=== PATIENT | male | born 1980 | race Caucasian/White ===

== ENCOUNTER 2024-05-26 08:27 | Emergency (ER) | payer OTHER, SELFPAY ==
[2024-05-26 08:34] VITALS: BP 154/92; PULSE 77; RESP 18; TEMP 36.4; O2SAT 98
--- NOTE | 2024-05-26 08:35 | XR_ITS ---
WS: [id number] PORTABLE CHEST HISTORY: dyspnea/cough COMPARISON: None available. Lungs are clear and well expanded. No pleural effusion or pneumothorax. Cardiac size: Normal. Mediastinum/Aorta: Normal mediastinum. No osseous abnormality seen. XR/XR chest 1V portable [id number] IMPRESSION: Unremarkable portable chest.
--- NOTE | 2024-05-26 08:36 | ECG_ITS ---
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 Measurements Intervals [place] Rate: 69 P: 46 RI: 189 QRS: 5 QRSD: 80 T: 19 QT: 346 QTc: 372 Interpretive Statements SINUS RHYTHM LOW QRS VOLTAGE IN PRECORDIAL LEADS [QRS DEFLECTION < 1.0 mV IN CHEST LEADS] INTERPRETATION BASED ON A DEFAULT AGE OF 40 YEARS No previous ECG available for comparison Electronically Signed On 05-28-2024 00:02:09 LUSTER APPLICATOR by Sarah Sapp M.D. [id number]
--- NOTE | 2024-05-26 08:38 | ED_ITS ---
HPI - SOB/Dyspnea 2 General: Chief Complaint: Shortness of Breath/Dyspnea Stated Complaint: Numbness in hands&feet, Sob, rapid hr Time Seen by Provider: 05/26/24 08:30 History of Present Illness: HPI Narrative: 43-year-old male presents to the emergen cy room with complaints of shortness of breath rapid heart rate elevated blood pressure at times he feels like he is having palpitations. No productive cough no fever sweats or chills. Patient has no known history of coronary artery disease. He is currently on lisinopril he states whenever he takes lisinopril it makes him feel uneasy. He is not having any chest discomfort or shortness of breath now. Patient does not smoke is not a known diabetic. He is not having a productive cough. He denies any hemoptysis. Associated symptoms: Reports palpitations; Deny abdominal pain, chest pain, fever(s) or orthopnea Related Data Home Medications Medication Instructions Recorded Confirmed albuterol sulfate 2.5 mg/3 mL 2.5 mg continuous nebulization Q6H 05/26/24 05/26/24 (0.083 %) solution for nebulization aspirin 81 mg tablet,delayed 81 mg PO DAILY 05/26/24 05/26/24 release Previous Rx's Medication Instructions Recorded omeprazole 20 mg capsule,delayed 20 mg PO DAILY 90 days #90 caps 05/16/24 release fluticasone propionate 50 1 spray intranasal BID #16 grams 05/23/24 mcg/actuation nasal spray,suspension (Flonase Allergy Relief) montelukast 10 mg tablet 10 mg PO DAILY 30 days #30 tabs 05/23/24 (Singulair) losartan 50 mg tablet 50 mg PO DAILY #30 tabs 05/26/24 Allergies Allergy/AdvReac Type Severity Reaction Status Date / Time No Known Allergies Allergy Verified 05/23/24 11:21 Review of Systems 2 Const: Denies: fever(s) or chills Card: Reports: palpitations; Denies: chest pain, edema, swelling of feet/ankles, dyspnea on exertion or orthopnea Resp: Reports: dyspnea GI: Denies: abdominal pain : Denies: dysuria, urinary frequency or urinary urgency Musc: Denies: neck pain or back pain Skin/Breast: Denies: rash PFSH ED 2 PFSH: Medical History Essential hypertension Social History Smoking and tobacco/nicotine status: never used tobacco/nicotine Alcohol intake: current Substance/Drug Use: never Adopted: No Caregiver/support person: Yes Lives independently: No Household members: spouse and children Housing: House Physical Exam 2 Const: COMMON NORMALS: no acute distress GENERAL APPEARANCE: cooperative and comfortable ORIENTATION/CONSCIOUSNESS: Yes awake, Yes oriented to person, Yes oriented to place and Yes oriented to time HENMT: COMMON NORMALS: normocephalic, atraumatic and hearing grossly normal bilaterally HEAD & SCALP: normocephalic and atraumatic Resp: COMMON NORMALS: normal respiratory effort, No retractions, No use of accessory muscles and clear to auscultation bilaterally AUSCULTATION: clear to auscultation bilaterally Cardio: COMMON NORMALS: regular rate, regular rhythm and No murmurs present (Cardio) RATE: regular rate RHYTHM: regular rhythm GI: COMMON NORMALS: Soft to palpation and No hepatosplenomegaly present A USCULTATION: Yes normoactive bowel sounds PALPATION: Yes Soft to palpation, No Tenderness to palpation present (GI), No Guarding due to palpation present (GI) and Yes No hepatosplenomegaly present Extremity: COMMON NORMALS: normal to inspection, capillary refill normal, no clubbing, cyanosis or edema, no calf tenderness and no pedal edema Neuro: SENSORIUM/ORIENTATION: Yes oriented to person, Yes oriented to place and Yes oriented to time Skin: COMMON NORMALS: no rashes or lesions noted GENERAL SKIN EXAM: no rashes or lesions noted Course 2 Vital Signs: Vital signs: Vital Signs Temperature 97.5 F L 05/26/24 08:34 Pulse Rate 59 L 05/26/24 11:12 Respiratory Rate 14 05/26/24 10:01 Blood Pressure 134/77 05/26/24 11:12 Pulse Oximetry 97 05/26/24 11:12 Oxygen Delivery Me thod Room Air 05/26/24 10:01 MDM - SOB/Dyspnea Medical Decision Making Cardiac enzymes are negative patient's blood pressure is well-controlled he is concerned that lisinopril is causing side effects we will have him stop lisinopril switch him to losartan 50 mg daily set him up for an outpatient echocardiogram 72-hour Holter monitor and a stress test follow-up with primary care. Return to the emergency room if he has further problems. Medical Records I reviewed the patient's medical records. Lab Data I reviewed the patient's lab results. 05/26/24 08:43 05/26/24 08:43 Labs/Radiology: Radiology Impressions Chest X-Ray 05/26/24 08:35 IMPRESSION: Unremarkable portable chest. Laboratory Results WBC 11.22 10^3/uL (3.29-11.43) 05/26/24 08:43 RBC 5.77 10^6/uL (3.85-5.65) H 05/26/24 08:43 Hgb 16.40 g/dL (11.27-16.99) 05/26/24 08:43 Hct 50.8 % (37-53) 05/26/24 08:43 MCV 88.0 fl (82-101) 05/26/24 08:43 MCH 28.4 pg (27-33) 05/26/24 08:43 MCHC 32.3 g/dL (30-55) 05/26/24 08:43 RDW 13.2 % (12.1-15.1) 05/26/24 08:43 Plt Count 340 10^3/cmm (157-399) 05/26/24 08:43 MPV 9.7 fL (7.4-10.4) 05/26/24 08:43 Neut % (Auto) 69.8 % 05/26/24 08:43 Lymph % (Auto) 22.5 % 05/26/24 08:43 Sullivan % (Auto) 5.7 % 05/26/24 08:43 Eos % (Auto) 0.7 % 05/26/24 08:43 Baso % (Auto) 0.5 % 05/26/24 08:43 Neut # (Auto) 7.83 10^3/uL (1.8-7.7) H 05/26/24 08:43 Lymph # (Auto) 2.5 10^3/uL (0.8-4.8) 05/26/24 08:43 Sullivan # (Auto) 0.6 10^3/uL (0.2-0.9) 05/26/24 08:43 Eos # (Auto) 0.1 10^3/uL (0.0-0.8) 05/26/24 08:43 Baso # (Auto) 0.1 10^3/uL (0.0-0.1) 05/26/24 08:43 Nucleated RBC % (auto) 0 % 05/26/24 08:43 Nucleated RBCs # 0.0 /100WBC 05/26/24 08:43 D-Dimer 0.44 ug/mLFEU (0-0.59) 05/26/24 08:43 Specimen Type Arterial 05/26/24 08:46 Sample Site Radial, right 05/26/24 08:46 ABG pH 7.42 (7.35-7.45) 05/26/24 08:46 ABG pCO2 40.1 mmHg (35-45) 05/26/24 08:46 ABG pO2 77.5 mmHg (80.0-100.0) L 05/26/24 08:46 ABG PO2/FiO2 Ratio 369 05/26/24 08:46 ABG HCO3 25.9 mmol/L (22-26) 05/26/24 08:46 ABG O2 Saturation 96.6 05/26/24 08:46 ABG Base Excess 1.2 mmol/L (-2.0-2.0) 05/26/24 08:46 Hipolito Test Pos 05/26/24 08:46 A-a O2 Gradient 3.1 mmHg (5-10) L 05/26/24 08:46 Hematocrit 49.6 % (42-52) 05/26/24 08:46 Hgb O2 Saturation 94.7 % (95-100) L 05/26/24 08:46 Carboxyhemoglobin 0.8 %THgb (0.4-20.1) 05/26/24 08:46 Methemoglobin 1.1 % (0.4-1.5) 05/26/24 08:46 Total Hemoglobin 16.2 g/dL (14-18) 05/26/24 08:46 Sodium 139.0 mmol/L (131-143) 05/26/24 08:46 Potassium 4.1 mmol/L (3.5-5.0) 05/26/24 08:46 Glucose 164.0 mg/dL (70-115) H 05/26/24 08:46 Ionized Calcium 1.2 mmol/L (1.1-1.4) 05/26/24 08:46 O2 Delivery Device Room air 05/26/24 08:46 FiO2 21.0 % 05/26/24 08:46 Parts Assembler ID Amh 05/26/24 08:46 Sodium 138 mmol/L (136-145) 05/26/24 08:43 Potassium 4.1 mmol/L (3.5-5.1) 05/26/24 08:43 Chloride 99 mmol/L (98-107) 05/26/24 08:43 Carbon Dioxide 25 mmol/L (22-29) 05/26/24 08:43 Anion Gap 18.1 (5-19) 05/26/24 08:43 BUN 12 mg/dL (6-20) 05/26/24 08:43 Creatinine 0.8 mg/dL (0.7-1.2) 05/26/24 08:43 GFR Calculation 106.5 mL/min (90-130) 05/26/24 08:43 Glucose 151 mg/dL (65-115) H 05/26/24 08:43 Calculated Osmolality 289 mOsm/kg (285-295) 05/26/24 08:43 Calcium 9.4 mg/dL (8.5-10.5) 05/26/24 08:43 Total Bilirubin 0.6 mg/dL (0.15-1.2) 05/26/24 08:43 AST 17 U/L (0-40) 05/26/24 08:43 ALT 20 U/L (0-41) 05/26/24 08:43 Alkaline Phosphatase 113 U/L (40-130) 05/26/24 08:43 Troponin T Baseline 7 ng/L (0-15) 05/26/24 08:43 Troponin T 120 Minute 7.74 ng/L (0-15) 05/26/24 10:26 Delta Troponin T 0.74 ABS# (0-10) 05/26/24 10:26 Total Protein 7.4 g/dL (6.6-8.7) 05/26/24 08:43 Albumin 4.4 g/dL (3.5-5.2) 05/26/24 08:43 Globulin 3.0 g/dL (1.3-4.6) 05/26/24 08:43 TSH 1.14 uIU/mL (0.27-4.20) 05/26/24 08:43 Urine Color Yellow (Yellow) 05/26/24 08:58 Urine Appearance Clear (CLEAR) 05/26/24 08:58 Urine pH 6.0 (5-7) 05/26/24 08:58 Ur Specific [place] 1.021 (1.005-1.030) 05/26/24 08:58 Urine Protein Negative (Negative) 05/26/24 08:58 Urine Glucose (UA) Negative (Normal) 05/26/24 08:58 Urine Ketones Negative (Negative) 05/26/24 08:58 Urine Blood Negative (Negative) 05/26/24 08:58 Urine Nitrate Negative (Negative) 05/26/24 08:58 Urine Bilirubin Negative (Negative) 05/26/24 08:58 Urine Urobilinogen 1.0 mg/dL (Negative) 05/26/24 08:58 Ur Leukocyte Esterase Negative (Negative) 05/26/24 08:58 Urine RBC 0-2 /hpf (0-2) 05/26/24 08:58 Urine WBC 0-5 /hpf (0-5) 05/26/24 08:58 Ur Squamous Epith Cells 0-5 /hpf (0-5) 05/26/24 08:58 Amorphous Sediment Not Reportable 05/26/24 08:58 Urine Bacteria None seen /hpf (NONE) 05/26/24 08:58 Hyaline Casts 0-4 /lpf H 05/26/24 08:58 All radiology interpretation(s) finalized by discharge Discharge Plan Discharge Patient Disposition: Home Clinical Impression: Palpitations, Hypertension Condition: Stable Prescriptions: New losartan 50 mg tablet 50 mg PO DAILY Qty: 30 0RF Discontinued lisinopril 20 mg tablet 20 mg PO DAILY 30 Days Qty: 30 2RF Rx Instructions: Increase dosage to 20, cancel 10 30 day due to insurance No Action omeprazole 20 mg capsule,delayed release(DR/EC) 20 mg PO DAILY 90 Days Qty: 90 0RF montelukast [Singulair] 10 mg tablet 10 mg PO DAILY 30 Days Qty: 30 0RF fluticasone propionate [Flonase Allergy Relief] 50 mcg/actuation spray,suspension 1 spray intranasal BID Qty: 16 0RF Rx Instructions: administer into each nostril albuterol sulfate 2.5 mg /3 mL (0.083 %) solution for nebulization 2.5 mg continuous nebulization Q6H aspirin [Aspir-81] 81 mg Tablet,Delayed Release (Dr/Ec) 81 mg PO DAILY Discharge Orders: Discharge ED (Routine); Ordered 05/26/24 Ordered By: Ash Amaral Referrals: Artie Presley, PROCESSING SPEC [Primary Care Provider] - Discharge Diet: Usual diet Discharge Activity: Resume usual activity Patient Instructions: Opioid Safety, Pain Management Activity Restrictions/Additional Instructions: [facility] It is very important that you follow up as instructed or that you return to the Emergency Department should you have concerns or if your condition changes or worsens in any way. You were seen in the emergency room with complaints of palpitations and difficulty your blood pressure. Recommend that you stop lisinopril and said will have you take losartan 50 mg daily. Will set you up for an outpatient echocardiogram 72-hour Holter monitor and is graded exercise stress test. Follow-up with primary care doctor within a week to review your blood pressure on the new medication. Monitor your blood pressure at home also take your blood pressure machine with you to your next doctor's visit so they can verify its accuracy. Coding Level of Care Code ED Electrical Products Engineer for John Bullard
[2024-05-26 08:57] LABS: ABG PCO2 40.1 mmHg (35-45); ABG PH Result 7.42 (7.35-7.45); Alveolar-Arterial Oxygen Gradi 3.1 mmHg (5-10); Arterial Blood Gas Hematocrit 49.6 % (42-52); Base Excess ABG 1.2 mmol/L (-2.0-2.0); Blood Gas Allen Test Pos; Blood Gas Operator Identificat AMH; Blood Gas Sample Site Radial, right; Blood Gas Sample Type Arterial; Carboxyhemoglobin 0.8 %THgb (0.4-20.1); HCO3 ABG 25.9 mmol/L (22-26); HGB O2 Sat 94.7 % (95-100); Ionized Calcium Level - ABG 1.2 mmol/L (1.1-1.4); Methemoglobin 1.1 % (0.4-1.5); Oxygen Device ROOM AIR; Oxygen Saturation ABG 96.6; PO2 ABG 77.5 mmHg (80.0-100.0); PO2 FiO2 Ratio Arterial Blood 369; Potassium Level - ABG 4.1 mmol/L (3.5-5.0); Total Hemoglobin 16.2 g/dL (14-18)
[2024-05-26 08:58] LABS: Basophils # 0.1 10^3/uL (0.0-0.1); Basophils % 0.5 %; Eosinophils # 0.1 10^3/uL (0.0-0.8); Eosinophils % 0.7 %; Hematocrit 50.8 % (37-53); Lymphocytes # 2.5 10^3/uL (0.8-4.8); Lymphocytes % 22.5 %; Mean Corpuscular HGB Conc 32.3 g/dL (30-55); Mean Corpuscular Hemoglobin 28.4 pg (27-33); Mean Platelet Volume 9.7 fL (7.4-10.4); Monocytes # 0.6 10^3/uL (0.2-0.9); Monocytes % 5.7 %; Neutrophils # 7.83 10^3/uL (1.8-7.7); Neutrophils % 69.8 %; Nucleated Red Blood Cells % 0 %; Platelet Count 340 10^3/cmm (157-399); Red Blood Count 5.77 10^6/uL (3.85-5.65); Red Cell Distribution Width 13.2 % (12.1-15.1); White Blood Count 11.22 10^3/uL (3.29-11.43)
[2024-05-26 09:09] LABS: Bilirubin Urine Negative (Negative); Blood Urine Negative (Negative); Glucose Urine UA Negative (Normal); Ketones Urine Negative (Negative); Leukocyte Esterase Urine Negative (Negative); Nitrate Urine Negative (Negative); Protein Urine Negative (Negative); Specific Gravity, Urine 1.021 (1.005-1.030); Urine Appearance Clear (CLEAR); Urine Color Yellow (Yellow)
[2024-05-26 09:14] LABS: Add Urine Microscopic? YES; Bacteria Urine None Seen /hpf; Hyaline Casts Urine 0-4 /lpf; RBC Urine 0-2 /hpf (0-2); Squamous Epithelial Cell Urine 0-5 /hpf (0-5); WBC Urine 0-5 /hpf (0-5)
[2024-05-26 09:15] LABS: Troponin(5th) Baseline 7 ng/L (0-15)
[2024-05-26 09:19] LABS: Alanine Aminotransferase 20 U/L (0-41); Albumin Level 4.4 g/dL (3.5-5.2); Alkaline Phosphatase 113 U/L (40-130); Anion Gap 18.1 (5-19); Aspartate Amino Transferase 17 U/L (0-40); Blood Urea Nitrogen 12 mg/dL (6-20); Calcium 9.4 mg/dL (8.5-10.5); Carbon Dioxide 25 mmol/L (22-29); Chloride 99 mmol/L (98-107); Creatinine Clr Calc Pharmacy 193.8482; Glomerular Filtration Rate 106.5 mL/min (90-130); Glucose 151 mg/dL (65-115); Osmolality Calculated 289 mOsm/kg (285-295); Potassium 4.1 mmol/L (3.5-5.1); Sodium 138 mmol/L (136-145); Thyroid Stimulating Hormone 1.14 uIU/mL (0.27-4.20); Total Bilirubin 0.6 mg/dL (0.15-1.2); Total Protein 7.4 g/dL (6.6-8.7)
[2024-05-26 10:01] VITALS: BP 132/77; PULSE 76; RESP 14; O2SAT 98
[2024-05-26 10:05] LABS: D Dimer 0.44 ug/mLFEU (0-0.59)
[2024-05-26 10:47] LABS: Troponin 5 2HR 7.74 ng/L (0-15); Troponin 5 2HR Delta 0.74 ABS# (0-10)
--- NOTE | 2024-05-26 10:47 | ECG_ITS ---
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
[2024-05-26 11:12] VITALS: BP 134/77; PULSE 59; O2SAT 97
--- NOTE | 2024-05-27 07:06 | DCPLANNER ---
Message sent to Cardiology for a follow up and holter monitor-
--- NOTE | 2024-05-27 08:55 | DCPLANNER ---
referral sent to centralized scheduling - Echo & Exercise stress test
== END 2024-05-26 11:29 | disposition home or self-care (01) ==
PROVIDERS: Emergency Provider Family Medicine; PCP Registered Nurse
DX: R00.2 Palpitations (principal); I10 Essential (primary) hypertension; Z79.82 Long term (current) use of aspirin
CPT/HCPCS: 36415; 36600; 71045; 80051; 80053; 81001; 82330; 82805; 84443; 84484; 85025; 85378; 93005; 99285

== ENCOUNTER 2024-06-16 11:56 | Outpatient (CLI) | payer OTHER, SELFPAY ==
[2024-06-16 12:18] VITALS: BMI 48.8
--- NOTE | 2024-06-16 12:19 | ECG_ITS ---
[employer] 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 Interpretive Statements EXERCISE STRESS TEST EXERCISE DATA: The patient was exercised by Dylan protocol. Baseline heart rate was 74 beats per minute. Baseline blood pressure was 120/81 millimeters of mercury. Maximal predicted heart rate was 179 beats per minute. Maximum heart rate achieved was 164 which was 91% of the maximum predicted heart rate. Maximum blood pressure was 193/58 millimeters of mercury. Total exercise time was 8 minutes and 21 seconds. Maximum METs achieved was 10.2. The reason for ending the test was completion of protocol. The patient complained of shortness of breath during the stress test, which then resolved at the end of the test. ELECTROCARDIOGRAM: BASELINE: Showed sinus rhythm, normal axis, no significant ST-T changes at the baseline noted. [] EXERCISE: At the peak exercise level, [] No significant ST-T changes suggestive of ischemia noted. [] RECOVERY: During the recovery period, heart rate dropped appropriately. No significant ST-T changes in the recovery suggestive of ischemia noted. [] CONCLUSION: 1. Exercise capacity is good. 2. Heart rate response was appropriate 3. Blood pressure response was appropriate 4. Symptoms not suggestive of ischemia. 5. Stress test is negative for ischemia. Electronically Signed On 07-06-2024 13:31:59 PERSONNEL MONITOR by Joesph Kauffman M.D. [id number]
--- NOTE | 2024-06-16 13:07 | USCV_ITS ---
Karson Guillen Age: 43 Gender: M : 1980 Exam Date: 06/16/2024 13:15 Ordering Phys: Ash Amaral DO Technologist: Exam Location: [facility] [place] Indication: Syncope/Collapse BP: 140 / 80 HR: 76 Rhythm: Sinus Technical Quality: Adequate MEASUREMENTS (Male / Female) Normal Values 2D ECHO LVOT Diameter 2.1 cm LV Ejection Fraction MOD 4C 54.9 % LV Ejection Fraction MOD 2C 70.4 % LV Ejection Fraction 2C AL 71.4 % LA Diameter 3.9 cm RA Systolic Volume 4C AL 69.5 ml RA Systolic Volume 4C MOD 66.2 ml Aorta at Sinotubular Diameter 3.1 cm IVC Diameter 2.1 cm M-MODE LA Ao Ratio MM 1.2 AV Cusp Separation MM 2.9 cm DOPPLER AV Peak Velocity 137.0 cm/s LVOT Peak Velocity 103.0 cm/s AV Area Cont Eq vti 3.3 cm squared AV Area Cont Eq pk 2.6 cm squared MV Area PHT 3.9 cm squared Mitral E to A Ratio 1.3 TR Peak Velocity 211.0 cm/s TR Peak Gradient 17.8 mmHg TV Peak E Velocity 236.0 cm/s PV Peak Velocity 104.0 cm/s FINDINGS Left Ventricle Left ventricle is normal in size. LV systolic function is normal with EF of 55-60%. No regional wall motion abnormalities are seen. Right Ventricle Normal in size and function Right Atrium Normal in size. Left Atrium Dilated Mitral Valve Structurally normal mitral valve. Aortic Valve Structurally normal aortic valve. No significant stenosis or regurgitation. Tricuspid Valve Insufficient TR jet to calculate RVSP. Pulmonic Valve Not well visualized Pericardium Normal Aorta Normal in size IVC Not well visualized CONCLUSIONS LV systolic function is normal with EF 55 to 60%. Left atrial dilation. No comparison studies are available. Joesph Kauffman MD (Electronically Signed) Final Date: 18 June 2024 13:12 S
[2024-06-16 13:22] VITALS: BP 126/74; PULSE 64
== END 2024-06-16 11:57 | disposition home or self-care (01) ==
LOC: CDL 11:58
PROVIDERS: PCP Registered Nurse; Visit Provider Family Medicine
DX: I10 Essential (primary) hypertension (principal); R00.2 Palpitations; I51.7 Cardiomegaly
CPT/HCPCS: 93017; 93306

== ENCOUNTER 2024-06-27 18:50 | Emergency (ER) | payer OTHER, SELFPAY ==
[2024-06-27 18:57] VITALS: BP 154/81; PULSE 65; RESP 16; TEMP 36.6; O2SAT 96; BMI 46.3
--- NOTE | 2024-06-27 19:17 | ECG_ITS ---
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
--- NOTE | 2024-06-27 19:17 | XRR_ITS ---
PROCEDURE INFORMATION: Exam: XR Chest Exam date and time: 06/27/2024 8:27 PM Age: 43 years old Clinical indication: Shortness of breath; Additional info: SOB TECHNIQUE: Imaging protocol: Radiologic exam of the chest. Views: 1 view. COMPARISON: CR XR chest 1V portable [id number] 05/26/2024 8:41 AM FINDINGS: Lungs: Unremarkable. No consolidation. Pleural spaces: Unremarkable. No pleural effusion. No pneumothorax. Heart/Mediastinum: Magnified by portable technique, stable from the prior study. Bones/joints: Unremarkable. XR/XR chest 1V portable [id number] IMPRESSION: No acute plain radiographic cardiopulmonary abnormality on single-view portable radiography. No interval change from 05/26/2024.
--- NOTE | 2024-06-27 19:39 | ED_ITS ---
HPI - SOB/Dyspnea 2 General: Chief Complaint: Shortness of Breath/Dyspnea Stated Complaint: sudden hard to breath in. tingly in head. Time Seen by Provider: 06/27/24 19:29 Source: patient Mode of arrival: ambulatory Limitations: no limitations History of Present Illness: HPI Narrative: 43-year-old male states that over the st month he has been having some intermittent dyspnea states he has had some anxiety along with some numbness in his hands as well. He has been seen here in the past for the same he states that last week he had had a stress test along with an ultrasound. States he has been having some left ear pain and had a lymph node in his left neck he seen his PCP for it and has ENT follow-up. He states today he had a period where he felt like he was short of breath is since resolved denies any symptoms currently. Associated symptoms: Deny abdominal pain, chest pain, fever(s), nausea or vomiting Related Data Home Medications ?Medication ?Instructions ?Recorded ?Confirmed albuterol sulfate 2.5 mg/3 mL 2.5 mg continuous nebuli zation Q6H 05/26/24 06/23/24 (0.083 %) solution for nebulization aspirin 81 mg tablet,delayed 81 mg PO DAILY 05/26/24 0 06/23/24 release Previous Rx's ?Medication ?Instructions ?Recorded omeprazole 20 mg capsule,delayed 20 mg PO DAILY 90 day s #90 caps 05/16/24 release fluticasone propionate 50 1 spray intranasal BID #16 g eduardo 05/23/24 mcg/actuation nasal spray,suspension (Flonase Allergy Relief) losartan 50 mg tablet 50 mg PO DAILY 90 days #90 t abs 06/23/24 sertraline 25 mg tablet (Zoloft) 25 mg PO DAILY 90 day s #90 tabs 06/23/24 Allergies Allergy/AdvReac Type Severity Reaction Status Date / Time No Known Allergies Allergy Verified 06/23/24 14:32 Review of Systems 2 Const: Denies: fever(s), chills, body aches or change in appetite ENMT: Denies: throat pain or dental pain Card: Denies: chest pain Resp: Reports: dyspnea GI: Denies: abdominal pain, nausea, vomiting or diarrhea Musc: Denies: neck pain or back pain Skin/Breast: Denies: rash Neuro: Denies: headache(s) PFSH ED 2 PFSH: Medical History Essential hypertension Social History Smoking and tobacco/nicotine status: never used tobacco/nicotine Alcohol intake: current Substance/Drug Use: never Adopted: No Caregiver/support person: Yes Lives independently: No Household members: spouse and children Housing: House Physical Exam 2 Const: COMMON NORMALS: no acute distress, patient oriented x3 and healthy appearing HENMT: COMMON NORMALS: normocephalic and atraumatic HEAD & SCALP: n ormocephalic and atraumatic Eye: COMMON NORMALS: conjunctivae normal CONJUNCTIVA: Yes conjunctivae normal Neck/C-Spine: COMMON NORMALS: full ROM and supple Chest: COMMONS NORMALS: normal inspection of the chest Resp: COMMON NORMALS: normal respiratory effort, No retractions, No use of accessory muscles and clear to auscultation bilaterally AUSCULTATION: clear to auscultation bilaterally Cardio: COMMON NORMALS: regular rate, regular rhythm and No murmurs present (Cardio) RATE: regular rate RHYTHM: regular rhythm Extremity: COMMON NORMALS: normal to inspection and full ROM Neuro: COMMON NORMALS: patient oriented x3, moves all extremities and no focal motor deficits Psych: COMMON NORMALS: mental status grossly normal, Normal thought process present and cooperative THOUGHT PROCESS: Normal thought process present Skin: COMMON NORMALS: no rashes or lesions noted and no wounds GENERAL SKIN EXAM: no rashes or lesions noted Course 2 Vital Signs: Vital signs: Vital Signs Temperature 98 F 06/27/24 18:57 Pulse Rate 20 L 06/27/24 21:18 Respiratory Rate 64 H 06/27/24 21:18 Blood Pressure 150/72 06/27/24 21:18 Pulse Oximetry 96 06/27/24 21:18 Oxygen Delivery Me thod Room Air 06/27/24 18:57 MDM - SOB/Dyspnea Medical Decision Making Patient presents here with dyspnea is well-appearing here he is having no chest pain and recent echo that was normal blood work x-ray here are normal as well he is felt improved here he stable for discharge he has ENT follow-up next month follow-up as scheduled return if worsening he understands agrees to plan Medical Records I reviewed the patient's medical records. Lab Data I reviewed the patient's lab results. 06/27/24 20:06/27/24 20: Labs/Radiology: Radiology Impressions Chest X-Ray 06/27/24 19:17 IMPRESSION: No acute plain radiographic cardiopulmonary abnormality on single-view portable radiography. No interval change from 05/26/2024. Laboratory Results WBC 9.42 10^3/uL (3.29-11.43) 06/27/24: RBC 5.08 10^6/uL (3.85-5.65) 06/27/24: Hgb 14.50 g/dL (11.27-16.99) 06/27/24: Hct 44.6 % (37-53) 06/27/24: MCV 87.8 fl (82-101) 06/27/24: MCH 28.5 pg (27-33) 06/27/24: MCHC 32.5 g/dL (30-55) 06/27/24: RDW 13.2 % (12.1-15.1) 06/27/24: Plt Count 263 10^3/cmm (157-399) 06/27/24: MPV 9.8 fL (7.4-10.4) 06/27/24: Neut % (Auto) 61.7 % 06/27/24: Lymph % (Auto) 29.3 % 06/27/24: Cook % (Auto) 7.2 % 06/27/24: Eos % (Auto) 1.2 % 06/27/24: Baso % (Auto) 0.4 % 06/27/24: Neut # (Auto) 5.81 10^3/uL (1.8-7.7) 06/27/24: Lymph # (Auto) 2.8 10^3/uL (0.8-4.8) 06/27/24: Cook # (Auto) 0.7 10^3/uL (0.2-0.9) 06/27/24: Eos # (Auto) 0.1 10^3/uL (0.0-0.8) 06/27/24: Baso # (Auto) 0.0 10^3/uL (0.0-0.1) 06/27/24 Nucleated RBC % (auto) 0 % 06/27/24 Nucleated RBCs # 0.0 /100WBC 06/27/24 Sodium 142 mmol/L (136-145) 06/27/24 Potassium 3.8 mmol/L (3.5-5.1) 06/27/24 Chloride 105 mmol/L (98-107) 06/27/24 Carbon Dioxide 26 mmol/L (22-29) 06/27/24 Anion Gap 14.8 (5-19) 06/27/24 BUN 10 mg/dL (6-20) 06/27/24 Creatinine 0.9 mg/dL (0.7-1.2) 06/27/24 GFR Calculation 93.0 mL/min (90-130) 06/27/24 Glucose 90 mg/dL (65-115) 06/27/24 Calculated Osmolality 293 mOsm/kg (285-295) 06/27/24 Calcium 9.0 mg/dL (8.5-10.5) 06/27/24 Total Bilirubin 0.4 mg/dL (0.15-1.2) 06/27/24 AST 16 U/L (0-40) 06/27/24 ALT 24 U/L (0-41) 06/27/24 Alkaline Phosphatase 87 U/L (40-130) 06/27/24 NT-Pro-B Natriuret Pep 80 pg/mL (0-125) 06/27/24 Total Protein 6.6 g/dL (6.6-8.7) 06/27/24 Albumin 4.2 g/dL (3.5-5.2) 06/27/24 Globulin 2.4 g/dL (1.3-4.6) 06/27/24 20 Coronavirus (PCR) Negative (Negative) 06/27/24 20: Influenza A (PCR) Negative (Negative) 06/27/24 20:03 Influenza Type B (PCR) Negative (Negative) 06/27/24 20:03 RSV (PCR) Negative (Negative) 06/27/24 20:03 All radiology interpretation(s) finalized by discharge EKG Data EKG 1: I personally reviewed and interpreted this EKG as follows: EKG Interpretation Date: 06/27/24 EKG interpretation time: 19:43 Interpretation: sinus michele hr [address] elevation qrs 92 qtc 366 Discharge Plan Discharge Patient Disposition: Home Clinical Impression: Dyspnea Condition: Stable Prescriptions: No Action omeprazole 20 mg capsule,delayed release(DR/EC) 20 mg PO DAILY 90 Days Qty: 90 0RF sertraline [Zoloft] 25 mg tablet 25 mg PO DAILY 90 Days Qty: 90 0RF losartan 50 mg tablet 50 mg PO DAILY 90 Days Qty: 90 0RF fluticasone propionate [Flonase Allergy Relief] 50 mcg/actuation spray,suspension 1 spray intranasal BID Qty: 16 0RF Rx Instructions: administer into each nostril albuterol sulfate 2.5 mg /3 mL (0.083 %) solution for nebulization 2.5 mg continuous nebulization Q6H aspirin [Aspir-81] 81 mg Tablet,Delayed Release (Dr/Ec) 81 mg PO DAILY Discharge Orders: Discharge ED (Routine); Ordered 06/27/24 Ordered By: Viktor Olivarez Referrals: Artie Presley FNP [Primary Care Provider] - 4-7 days Discharge Diet: Advance as tolerated Discharge Activity: Resume usual activity Patient Instructions: Dyspnea (ED) Print Language: Bengali Coding Level of Care Code ED [employer] Law Clerk for John Bullard
[2024-06-27 19:48] VITALS: BP 149/86; PULSE 55; RESP 18; O2SAT 96
[2024-06-27 20:33] LABS: Basophils % 0.4 %; Eosinophils # 0.1 10^3/uL (0.0-0.8); Eosinophils % 1.2 %; Hematocrit 44.6 % (37-53); Lymphocytes # 2.8 10^3/uL (0.8-4.8); Lymphocytes % 29.3 %; Mean Corpuscular HGB Conc 32.5 g/dL (30-55); Mean Corpuscular Hemoglobin 28.5 pg (27-33); Mean Corpuscular Volume 87.8 fl (82-101); Mean Platelet Volume 9.8 fL (7.4-10.4); Monocytes # 0.7 10^3/uL (0.2-0.9); Monocytes % 7.2 %; Neutrophils # 5.81 10^3/uL (1.8-7.7); Neutrophils % 61.7 %; Nucleated Red Blood Cells % 0 %; Platelet Count 263 10^3/cmm (157-399); Red Blood Count 5.08 10^6/uL (3.85-5.65); Red Cell Distribution Width 13.2 % (12.1-15.1); White Blood Count 9.42 10^3/uL (3.29-11.43)
[2024-06-27 20:54] LABS: Influenza A NEGATIVE (Negative); Influenza B NEGATIVE (Negative); Respiratory Syncytial Virus Ce NEGATIVE (Negative); SARS-CoV-2 PCR NEGATIVE (Negative)
[2024-06-27 21:00] VITALS: BP 126/85; PULSE 63; RESP 18; O2SAT 98
[2024-06-27 21:01] LABS: Alanine Aminotransferase 24 U/L (0-41); Albumin Level 4.2 g/dL (3.5-5.2); Alkaline Phosphatase 87 U/L (40-130); Anion Gap 14.8 (5-19); Aspartate Amino Transferase 16 U/L (0-40); Blood Urea Nitrogen 10 mg/dL (6-20); Carbon Dioxide 26 mmol/L (22-29); Chloride 105 mmol/L (98-107); Creatinine Clr Calc Pharmacy 165.9344; Globulin 2.4 g/dL (1.3-4.6); Glucose 90 mg/dL (65-115); NT Pro B Type Natriuretic Pept 80 pg/mL (0-125); Osmolality Calculated 293 mOsm/kg (285-295); Potassium 3.8 mmol/L (3.5-5.1); Sodium 142 mmol/L (136-145); Total Bilirubin 0.4 mg/dL (0.15-1.2); Total Protein 6.6 g/dL (6.6-8.7)
[2024-06-27 21:18] VITALS: BP 150/72; PULSE 20; RESP 64; O2SAT 96
== END 2024-06-27 21:19 | disposition home or self-care (01) ==
PROVIDERS: Emergency Provider Emergency Medicine; PCP Registered Nurse
DX: R06.00 Dyspnea, unspecified (principal); Z11.52 Encounter for screening for COVID-19; Z79.82 Long term (current) use of aspirin; I10 Essential (primary) hypertension
CPT/HCPCS: 71045; 80053; 83880; 85025; 87637; 93005; 99285

== ENCOUNTER → 2024-08-14 16:14 | Outpatient (BNVA) | payer OTHER, SELFPAY | PROVIDERS: PCP Registered Nurse; Visit Provider Nurse Practitioner Family | DX: R53.83 Other fatigue (principal); I10 Essential (primary) hypertension; G47.30 Sleep apnea, unspecified; E66.9 Obesity, unspecified; J30.9 Allergic rhinitis, unspecified | CPT/HCPCS: 82040; 84270; 84403; 86003; 86008; 86618; 86666; 86757 ==

== ENCOUNTER 2024-09-10 15:39 | Outpatient (CLI) | payer OTHER, SELFPAY | END 2024-09-10 15:40 | disposition home or self-care (01) | LOC: SLEEP 15:41 | PROVIDERS: PCP Registered Nurse; Visit Provider Nurse Practitioner Family | DX: G47.33 Obstructive sleep apnea (adult) (pediatric) (principal); G47.36 Sleep related hypoventilation in conditions classified elsewhere | CPT/HCPCS: G0399 ==

== ENCOUNTER → 2024-10-21 14:55 | Outpatient (BNVA) | payer OTHER, SELFPAY | PROVIDERS: PCP Registered Nurse; Visit Provider Internal Medicine | DX: R07.9 Chest pain, unspecified (principal) | CPT/HCPCS: 93005 ==